=== PATIENT | male | born 1955 | race Caucasian/White ===

== ENCOUNTER 2019-04-26 04:00 | Inpatient (IN) | payer BC ==
[~2019-04-26] VITALS: Ht 182.9 cm; Wt 90.4 kg
--- NOTE | 2019-04-26 04:10 | NUR ---
BIB SELF FROM HOME. AAOX4. NO SOB, BREATHING EVEN AND UNLABORED. AMBULATORY. C/O PALPITATION, PT DESCRIBES FEELING OF RAISING HEART RATE SINCE 12MN. DENIES CP. -N/V/D. TO ER BED 8. PLACE ON MONITOR. MD AT BEDSIDE FOR EVAL. AWAITING ORDERS
--- NOTE | 2019-04-26 04:15 | NUR ---
BLOOD DRAWN AND ESNT TO LAB
[2019-04-26 04:33] LABS: BASOPHILS % (AUTO) 0.4 % (0.0-2.0); HEMATOCRIT 46 % (39-51); HEMOGLOBIN 15.8 g/dL (13.5-17.5); LYMPHOCYTES % (AUTO) 28.4 % (20.0-44.0); MEAN CORPUSCULAR HGB CONC 35 g/dl (31.0-36.0); MEAN CORPUSCULAR VOLUME 91 fL (80-96); MONOCYTES # (AUTO) 0.6 /CMM (0.1-1.30); NEUTROPHILS # (AUTO) 4.2 /CMM (1.8-8.9); NEUTROPHILS % (AUTO) 59.2 % (43.0-81.0); PLATELET COUNT (AUTO) 115 /CMM (150-450); RED BLOOD CELL COUNT(AUTO) 5.02 MIL/uL (4.5-6.0); WHITE BLOOD COUNT (AUTO) 7.1 K/uL (4.3-11.0)
[2019-04-26 04:35] LABS: ALANINE AMINOTRANSFERASE 40 U/L (12-78); ALBUMIN 3.4 g/dL (3.4-5.0); ALKALINE PHOSPHATASE 73 U/L (46-116); ASPARTATE AMINOTRANSFERASE 23 U/L (15-37); BILIRUBIN,DIRECT 0.2 mg/dL (0.0-0.2); BILIRUBIN,TOTAL 1.1 mg/dL (0.2-1.0); CALCIUM, SERUM 8.3 mg/dL (8.5-10.1); CARBON DIOXIDE 23 mmol/L (21-32); CHLORIDE 109 mmol/L (98-107); CREATININE 0.9 mg/dL (0.6-1.3); GLUCOSE 95 mg/dL (74-106); POTASSIUM 3.7 mmol/L (3.5-5.1); SODIUM SERUM 143 mmol/L (136-145); TOTAL PROTEIN, SERUM 6.6 g/dL (6.4-8.2); UREA NITROGEN, BLOOD 17 mg/dL (7-18)
--- NOTE | 2019-04-26 05:17 | NUR ---
PT AMBULATED TO BATHROOM WITH STEADY GAIT W/O ANY ASSISTANCE
[2019-04-26] MEDS ORDERED: ONDANSETRON HCL/PF 4 MG/2 ML VIAL IV PRN (05:30)
[2019-04-26] MEDS ORDERED: MAG HYDROX/AL HYDROX/SIMETH 30 ML UDC PO PRN (05:30)
[2019-04-26] MEDS ORDERED: ACETAMINOPHEN 325 MG TABLET PO PRN (05:30)
[2019-04-26] MEDS ORDERED: DOCUSATE SODIUM 100 MG CAPSULE PO PRN (05:30)
--- NOTE | 2019-04-26 05:56 | NUR ---
REPORT GIVEN TO SETH PINA FOR DAYSI. PT GOING TO TELE 325-1
--- NOTE | 2019-04-26 06:10 | NUR ---
pt transported to unit with emt and rn at bedside w/ acls protocol. nad noted during transport. pt ambulated from gurney to bed w/o assist.
--- NOTE | 2019-04-26 06:10 | NUR ---
INTRUSION ANALYST ADMITTING NOTES RECEIVED PT FROM ER VIA GURNEY AND PT WALKED TO BED WITH FAMILY AT BEDSIDE. PT WITH STEADY GAIT. PT A/O X4 AND ABLE TO MAKE NEEDS KNOWN. RESPIRATIONS EVEN AND UNLABORED WITH NO S/S OF ACUTE DISTRESS OR SOB NOTED. PT WITH 2L o2 VIA NC TOLERATING WELL. PT WITH RAC #20G PATENT AND INTACT, SL. PT ON TELE MONITOR WITH AFIB @90. SAFETY MEASURES IN PLACE WITH BED IN LOWEST LOCKED POSITION WITH SIDE RAILS UP X2. ORIENTED PT TO UNIT AND ROOM. CALL LIGHT WITHIN REACH. WILL CONTINUE TO MONITOR.
--- NOTE | 2019-04-26 07:08 | NUR ---
SCHOOL COOK NOTES PT IN BED AWAKE AND ABLE TO MAKE NEEDS KNOWN WITH FAMILY AT BEDSIDE. PT A/O X4. RESPIRATIONS EVEN AND UNLABORED WITH NO S/S OF ACUTE DISTRESS OR SOB NOTED. PT WITH 2L o2 VIA NC TOLERATING WELL. PT WITH RAC #20G PATENT AND INTACT, SL. PT ON TELE MONITOR WITH AFIB @93. SAFETY MEASURES IN PLACE WITH BED IN LOWEST LOCKED POSITION WITH SIDE RAILS UP X2. CALL LIGHT WITHIN REACH. WILL ENDORSE TO ONCOMING NURSE FOR DAYSI.
[2019-04-26] MEDS ORDERED: ATOR20TA PO (07:32)
[2019-04-26] MEDS ORDERED: ASPI-605 PO (07:32)
[2019-04-26] MEDS ORDERED: LISI2.5T2 PO (07:32)
[2019-04-26 08:00] VITALS: BP 120/78
[2019-04-26] MEDS ORDERED: AMIODARONE 150 MG in IV D5W 100 ML IV ONE (08:30)
[2019-04-26] MEDS ORDERED: AMIODARONE 900 MG in IV D5W 500 ML IV PRN (08:30)
[2019-04-26 08:59] LABS: MAGNESIUM 1.8 mg/dL (1.8-2.4); THYROID STIMULATING HORMONE 3.881 uIU/mL (0.358-3.74)
[2019-04-26] MEDS ORDERED: AMIODARONE 900 MG in IV D5W 482 ML IV PRN (09:00)
[2019-04-26] MEDS ORDERED: ASPIRIN 81 MG TAB.CHEW PO SCH (09:00)
[2019-04-26] MEDS ORDERED: LISINOPRIL (5MG) 5 MG TABLET PO SCH (09:00)
--- NOTE | 2019-04-26 09:00 | NUR ---
PROFILER OPERATOR NOTES PATIENT SEEN AND EVALUATED BY DR. PALMA ORDERS TO TRANSFER TO [facility] AND START IV AMIODARONE DRIP.
--- NOTE | 2019-04-26 09:07 | NUR ---
[facility] RN,patient received from 3rd floor telemetry to room 119-1 [facility] status patient awake and alert oriented x3 resp unlabored no sob noted resp unlabored no sob noted plan of care and safety discussed and verbalized understanding Telemetry shows SB 57 b/p 114/75, R/A pulse ox 97% patient encouraged use of call light to make all needs known will continue to assess and evaluate
--- NOTE | 2019-04-26 09:30 | NUR ---
GRINDING WHEEL INSPECTOR NOTES PATIENT TRANSFERRED TO [facility] PER DR. GRAF ORDERS. REPORT GIVEN TO JUVENTINO AT BEDSIDE.
--- NOTE | 2019-04-26 09:41 | NUR ---
[facility] RN ,Amiodarone started at this time as ordered
--- NOTE | 2019-04-26 09:50 | NUR ---
[facility] RN, Amiodarone drip discontinued at this time as ordered Telemetry remains still SB 57
[2019-04-26] MEDS: DRONEDARONE HYDROCHLORIDE 400 MG TABLET PO SCH ×3 (10:00→18:24)
--- NOTE | 2019-04-26 10:30 | NUR ---
[facility] RN, blood drawen for Troponin level no complaints of distress noted at present time will continue to assess and evaluate
[2019-04-26 10:54] VITALS: BP 114/76
[2019-04-26 12:00] VITALS: BP 110/72
--- NOTE | 2019-04-26 12:00 | NUR ---
[facility] RN,vitals taken and recorded family at bed side no signs of distress noted at present time
[2019-04-26 12:07] VITALS: BP 114/73
--- NOTE | 2019-04-26 14:00 | NUR ---
Laci RN ,patient still having SB Troponin is negative
[2019-04-26 16:00] VITALS: BP_SYST 114; BP_SYST 98; BP_DIAS 68; BP_DIAS 73
--- NOTE | 2019-04-26 16:00 | NUR ---
Laci RN ,Left message to Dr Zurita re; discharge home today
--- NOTE | 2019-04-26 16:30 | NUR ---
[facility] RN ,Parminder Garcia stated it is ok to discharge home but call to for final discharge left message to re; above
[2019-04-26] MEDS ORDERED: RIVAROXABAN 10 MG TABLET PO SCH (17:00)
--- NOTE | 2019-04-26 17:30 | NUR ---
Laci RN, called in and stated that pharmacy is closed left a message to call in prescription they can pick it up tomorrow AM
--- NOTE | 2019-04-26 18:30 | NUR ---
[facility] RN, all discharge instructions given along with prescriptions pick it up tomorrow morning and verbalized understanding also given instructions to make an appointment for follow up check and call if any problems occurs call PMD patient discharged with satisfactory condition hep lock discontinued and no signs of redness or swelling noted. Accompanied by his no signs of distress noted at this time
[2019-04-26] MEDS ORDERED: ATORVASTATIN 10 MG TABLET PO SCH (22:00)
== END 2019-04-26 18:20 | disposition home or self-care (01) | DRG 310 ==
LOC: ER 04:03 → TELE 05:46 → TELE-TD 09:25
PROVIDERS: ADMIT Registered Nurse; ATTEND Registered Nurse
DX: I48.91 Unspecified atrial fibrillation (principal); I10 Essential (primary) hypertension; E80.4 Gilbert syndrome
CPT/HCPCS: 36415; 71045-TC; 80048-TC; 80061-TC; 80076-TC; 83735-TC; 84439-TC; 84443-TC; 84484-TC; 85025-TC; 85730-TC; 87081-TC; 93307-TC; G0378; J0282; J7060